=== PATIENT | female | born 1990 | race Two or more races ===

== ENCOUNTER 2019-09-07 20:37 | Emergency (ER) | payer MEDICAID, OTHER ==
[~2019-09-07] VITALS: Ht 157.5 cm; Wt 47.2 kg
[2019-09-07 23:49] VITALS: BP 141/41
== END 2019-09-08 00:51 | disposition home or self-care (01) ==
LOC: ER 20:37
DX: L25.9 Unspecified contact dermatitis, unspecified cause (principal)